=== PATIENT | female | born 1985 | race Caucasian/White ===

== ENCOUNTER 2024-12-02 10:36 | Emergency (ER) | payer MEDICAID ==
[~2024-12-02] VITALS: Ht 167.6 cm; Wt 75.0 kg
[2024-12-02 10:40] VITALS: BP 154/99; PULSE 68; RESP 18; TEMP 36.7; O2SAT 100; O2SAT 98
[2024-12-02] MEDS ORDERED: BO1 TP (13:02)
[2024-12-02] MEDS ORDERED: AMOX1TAB16 MT (13:02)
== END 2024-12-02 13:01 | disposition home or self-care (01) ==
LOC: ER 10:36
DX: L03.011 Cellulitis of right finger (principal)
CPT/HCPCS: 99283

== ENCOUNTER 2024-12-30 08:50 | Emergency (ER) | payer MEDICAID ==
[~2024-12-30] VITALS: Ht 172.7 cm; Wt 85.0 kg
[~2024-12-30 08:50] MED LIST: AMOX1TAB16 MT; BO1 TP
[2024-12-30 08:52] VITALS: O2SAT 98
[2024-12-30 08:55] VITALS: BP 160/101; PULSE 71; RESP 16; TEMP 36.8; O2SAT 100
[2024-12-30] MEDS ORDERED: CLIN-194 MT (10:25)
[2024-12-30] MEDS ORDERED: CLOT15CR5 TP (10:25)
== END 2024-12-30 10:58 | disposition home or self-care (01) ==
LOC: ER 08:50
DX: B35.1 Tinea unguium (principal); Z79.899 Other long term (current) drug therapy
CPT/HCPCS: 99283